=== PATIENT | male | born 1950 | race Caucasian/White ===

== ENCOUNTER 2023-05-21 10:48 | Outpatient (CLI) | payer MEDICARE, OTHER | END 2023-05-21 10:49 | disposition home or self-care (01) | LOC: BICRAD 10:48 | PROVIDERS: ATTEND Internal Medicine Rheumatology | DX: M25.542 Pain in joints of left hand (principal); M25.541 Pain in joints of right hand; M46.1 Sacroiliitis, not elsewhere classified; M54.50 Low back pain, unspecified; M19.042 Primary osteoarthritis, left hand | CPT/HCPCS: 72202 ==